=== PATIENT | male | born 1975 | race Caucasian/White ===

== ENCOUNTER 2017-05-18 17:53 | Inpatient (IN) | payer BC, OTHER ==
[~2017-05-18] VITALS: Ht 205.7 cm; Wt 98.5 kg
[2017-05-18] MEDS ORDERED: SODIUM CHLORIDE 0.9% FLUSH 10 ML FLUSH IV FLUSH PRN (19:00)
[2017-05-18] MEDS ORDERED: NALOXONE HCL 0.4 MG/ML AMP IV PUSH PRN (19:00)
[2017-05-18] MEDS ORDERED: SODIUM CHLORIDE 0.9% FLUSH 10 ML FLUSH IV FLUSH SCH (21:00)
[2017-05-18 23:40] VITALS: BP 121/58; PULSE 65; RESP 17; TEMP 97.7; O2SAT 98
[2017-05-19] MEDS ORDERED: MAGNESIUM HYDROXIDE SUSP 30 ML CUP PO PRN (00:15)
[2017-05-19] MEDS ORDERED: NALOXONE HCL 0.4 MG/ML AMP IV PUSH PRN (00:15)
[2017-05-19] MEDS ORDERED: SENNOSIDES 8.6 MG TAB PO PRN (00:15)
[2017-05-19] MEDS ORDERED: LACTULOSE SYRUP 20 GM/30 ML CUP PO PRN (00:15)
[2017-05-19] MEDS ORDERED: SODIUM CHLORIDE 0.9% FLUSH 10 ML FLUSH IV FLUSH PRN (00:15)
[2017-05-19] MEDS ORDERED: ONDANSETRON HCL 4 MG/2 ML VIAL IVP PRN (00:15)
[2017-05-19] MEDS ORDERED: ACETAMINOPHEN 325 MG TAB PO PRN (00:15)
[2017-05-19] MEDS ORDERED: BISACODYL 10 MG SUPP RECTAL PRN (00:15)
[2017-05-19] MEDS ORDERED: LORazepam 2 MG/ML VIAL IV PUSH ONE (00:30)
--- NOTE | 2017-05-19 01:17 | RADRPT ---
EXAM DATE/TIME: 05/19/2017 00:51 [facility] COMPARISON: No previous studies available for comparison. INDICATIONS : Altered mental status; trauma, fall one week ago. RADIATION DOSE: 52.19 CTDIvol (mGy) MEDICAL HISTORY : substance abuse. SURGICAL HISTORY : None. ENCOUNTER: Initial ACUITY: 1 day PAIN SCALE: Non-responsive LOCATION: cranial TECHNIQUE: Multiple contiguous axial images were obtained of the head. Using automated exposure control and adj ustment of the mA and/or kV according to patient size, radiation dose was kept as low as reasonably a chievable to obtain optimal diagnostic quality images. DICOM format image data is available electro nically for review and comparison. FINDINGS: CEREBRUM: The ventricles are normal for age. No evidence of midline shift, mass lesion, hemorrhage or acute in farction. No extra-axial fluid collections are seen. POSTERIOR FOSSA: The cerebellum and brainstem are intact. The 4th ventricle is midline. The cerebellopontine angle i s unremarkable. EXTRACRANIAL: Fracture of the right lateral orbit. Right maxillary sinus disease. SKULL: The calvaria is intact. No evidence of skull fracture. There are fractures of the right maxillary si nus and right zygomatic arch. CONCLUSION: 1. No acute intracranial disease. 2. Fractures of the right zygomatic arch, right maxillary sinus and right lateral orbit. Brett Epps MD on May 19, 2017 at 1:12 Board Certified Radiologist. This report was verified electronically.
--- NOTE | 2017-05-19 02:34 | HHI.HP ---
HPI Service [facility] Hospitalists Primary Care Physician Unknown Admission Diagnosis Diagnoses: Chief Complaint: AMS, acute psycosis Travel History International Travel<30 Days: No Contact w/Intl Traveler <30 Da: No History of Present Illness 41 year old male with a possible history seizures was a transfer from [facility] per concerns from local family members. Patient was originally admitted to [facility] after having a possible syncopal episode and being found face down on the ground. When patient became more alert he was very combative. Records reviewed and it shows patient has multiple nonsurgical facial fractures. During his course at [facility] he became combative and hallucinating and was transferred to [facility] psychiatric department. Patient was placed on Haldol, Geodon and Zyprexa with no improvement. It was agreed that patient be transferred to [facility] for a second opinion per family request. Upon arrival patient was very combative and Ativan was needed in order to perform a CT scan. Scans from prior hospitals were reviewed, MRI was stated completed for possible demyelination process but unfortunately there is no MRI report in the records. Patient seen and examined, patient is currently in 4 point restraints and sedated, unable to answer questions at this time. According to the RN when patient arrived he was hallucinating and not making sense when he talked, and grabbing for objects that were not there. A close family member was at the bedside and was able to give information. She say she spoke to the patient on the phone and was able to state her name but did not know much more. She does not know his medical history besides hypertension but states he sees Dr. Porras in [facility] and provided the number. She states he is a smoker but does not drink or do drugs. He works for his Dad's company, [employer]. Review of Systems Except as stated in HPI: all other systems reviewed are Neg Past Family Social History Past Medical History Per medical records: Possible Seizure disorder Past Surgical History Per medical records no surgical history Known Allergies: Coded Allergies: No Known Allergies (Verified Allergy, Severe, 08/07/04) Active Ordered Medications Current Medications Medications (Trade) Dose Ordered Sig/Odalis Route Start Time Stop Time Status Last Admin (NS Flush) 2 ml UNSCH PRN IV FLUSH 05/19/17 00:15 (NS Flush) 2 ml BID IV FLUSH 05/19/17 09:00 (Tylenol) 650 mg Q4H PRN PO 05/19/17 00:15 (Zofran Inj) 4 mg Q6H PRN IVP 05/19/17 00:15 (Narcan Inj) 0.4 mg UNSCH PRN IV PUSH 05/19/17 00:15 (Shagufta-Colace) 1 tab BID PO 05/19/17 09:00 (Milk Of Magnesia Liq) 30 ml Q12H PRN PO 05/19/17 00:15 (Senokot) 17.2 mg Q12H PRN PO 05/19/17 00:15 (Dulcolax Supp) 10 mg DAILY PRN RECTAL 05/19/17 00:15 (Lactulose Liq) 30 ml DAILY PRN PO 05/19/17 00:15 (Keppra) 500 mg Q12HR PO 05/19/17 09:00 Family History Per medical history patient has a family history of heart disease Social History Per medical history patient is a former smoker Physical Exam Vital Signs Vital Signs Date Time Temp Pulse Resp B/P (MAP) Pulse Ox O2 Delivery O2 Flow Rate FiO2 05/18/17 23:40 97.7 65 17 121/58 (79) 98 Physical Exam GENERAL: This is a well-nourished, well-developed patient, who is in acute psychosis. SKIN: Multiple abrasions on face and extremities, ecchymoses around right eye HEAD: Atraumatic. Normocephalic. EYES: Pupils equal round and reactive. Right eye reddened sclera ENT: Nose without bleeding, purulent drainage or septal hematoma. Airway patent. NECK: Trachea midline. No JVD or lymphadenopathy. CARDIOVASCULAR: Regular rate and rhythm without murmurs, gallops, or rubs. RESPIRATORY: Clear to auscultation. Breath sounds equal bilaterally. No wheezes , rales, or rhonchi. GASTROINTESTINAL: Abdomen soft, non-tender, nondistended. MUSCULOSKELETAL: Extremities without clubbing, cyanosis, or edema. NEUROLOGICAL: Lethargic, moves to painful stimuli. Does not follow commands, restrained Caprini VTE Risk Assessment Caprini VTE Risk Assessment: No/Low Risk (score <= 1) Caprini Risk Assessment Model Point Value = 1 Point Value = 2 Point Value = 3 Point Value = 5 Age 41-60 Minor surgery BMI > 25 kg/m2 Swollen legs Varicose veins or History of unexplained or recurrent spontaneous Oral contraceptives or hormone replacement Sepsis (< 1 month) Serious lung disease, including pneumonia (< 1 month) Abnormal pulmonary function Acute myocardial infarction Congestive heart failure (< 1 month) History of inflammatory bowel disease Medical patient at bed rest Age 61-74 Arthroscopic surgery Major open surgery (> 45 min) Laparoscopic surgery (> 45 min) Malignancy Confined to bed (> 72 hours) Immobilizing plaster cast Central venous access Age >= 75 History of VTE Family history of VTE Factor V Leiden Prothrombin [id number] Lupus anticoagulant Anticardiolipin antibodies Elevated serum homocysteine Heparin-induced thrombocytopenia Other congenital or acquired thrombophilia Stroke (< 1 month) Elective arthroplasty Hip, pelvis, or leg fracture Acute spinal cord injury (< 1 month) Prophylaxis Regimen Total Risk Factor Score Risk Level Prophylaxis Regimen 0-1 Low Early ambulation 2 Moderate Order ONE of the following: *Sequential Compression Device (SCD) *Heparin 5000 units SQ BID 3-4 Higher Order ONE of the following medications: *Heparin 5000 units SQ TID *Enoxaparin/Lovenox 40 mg SQ daily (WT < 150 kg, CrCl > 30 mL/min) *Enoxaparin/Lovenox 30 mg SQ daily (WT < 150 kg, CrCl > 10-29 mL/min) *Enoxaparin/Lovenox 30 mg SQ BID (WT < 150 kg, CrCl > 30 mL/min) AND/OR *Sequential Compression Device (SCD) 5 or more Highest Order ONE of the following medications: *Heparin 5000 units SQ TID (Preferred with Epidurals) *Enoxaparin/Lovenox 40 mg SQ daily (WT < 150 kg, CrCl > 30 mL/min) *Enoxaparin/Lovenox 30 mg SQ daily (WT < 150 kg, CrCl > 10-29 mL/min) *Enoxaparin/Lovenox 30 mg SQ BID (WT < 150 kg, CrCl > 30 mL/min) AND *Sequential Compression Device (SCD) Assessment and Plan Problem List: (1) Acute psychosis ICD Code: F23 - Brief psychotic disorder Status: Acute (2) Facial fracture due to fall ICD Code: S02.92XA - Unspecified fracture of facial bones, initial encounter for closed fracture; W19.XXXA - Unspecified fall, initial encounter Status: Acute (3) Acute renal failure ICD Code: N17.9 - Acute kidney failure, unspecified Status: Acute Assessment and Plan 41 year old male with a possible history seizures was a transfer from [facility] per concerns from local family members. Patient was originally admitted to [facility] after having a possible syncopal episode and being found face down on the ground. Acute psychosis, unknown etiology, possible toxic Head CT reviewed and unremarkable -MRI brain ordered -Consult neurology for recommendations -Consult psychiatry for recommendations -EEG ordered -Hold psych medications until evaluated by psychiatry -Ammonia level ordered -Requesting recorders from PCP regarding home medications and history Acute renal failure, creatine 3.17 -NS bolus given, Cont IVF for hydration -Renal ultrasound ordered -Consult nephrology for assistance -Avoid nephrotoxins Leukocytosis, wbc 16.7, possible reactive, no source -UA Ordered -Trend CBC Facial fractures from fall, chronic -Will need follow up with Dr. Guerrero once discharged DVT prophylaxis: SCDs Discussed Condition With Patient's family friend and RN Physician Certification 2 Midnight Certification Type: Admission for Inpatient Services Order for Inpatient Services The services are ordered in accordance with Medicare regulations or non- Medicare payer requirements, as applicable. In the case of services not specified as inpatient-only, they are appropriately provided as inpatient services in accordance with the 2-midnight benchmark. Estimated LOS (days): 2 days is the estimated time the patient will need to remain in the hospital, assuming treatment plan goals are met and no additional complications. Post-Hospital Plan: Not yet determined Problem Qualifiers (1) Facial fracture due to fall: Qualified Codes: S02.92XA - Unspecified fracture of facial bones, initial encounter for closed fracture; W19.XXXA - Unspecified fall, initial encounter (2) Acute renal failure: Qualified Codes: N17.9 - Acute kidney failure, unspecified Ninoska Hyatt May 19, 2017 02:34
[2017-05-19 04:15] LABS: AUTOMATED NEUTROPHIL # 13.5 TH/MM3 (1.8-7.7); BASOPHIL # 0.1 TH/MM3 (0-0.2); BASOPHIL % 0.4 % (0.0-2.0); EOSINOPHIL # 0.1 TH/MM3 (0-0.4); EOSINOPHIL % 0.4 % (0.0-4.0); HEMATOCRIT 43.4 % (39.0-51.0); HEMOGLOBIN 14.9 GM/DL (13.0-17.0); LYMPH % 9.1 % (9.0-44.0); LYMPHOCYTE # 1.5 TH/MM3 (1.0-4.8); MEAN CELL VOLUME 81.8 FL (80.0-100.0); MEAN CORPUSCULAR HEMOGLOBIN 28.1 PG (27.0-34.0); MEAN CORPUSCULAR HGB CONC 34.4 % (32.0-36.0); MEAN PLATELET VOLUME 8.5 FL (7.0-11.0); MONO % 9.4 % (0.0-8.0); MONOCYTE # 1.6 TH/MM3 (0-0.9); NEUT % 80.7 % (16.0-70.0); PLATELET COUNT 287 TH/MM3 (150-450); RED BLOOD COUNT 5.31 MIL/MM3 (4.50-5.90); RED CELL DISTRIBUTION WIDTH 13.7 % (11.6-17.2); WHITE BLOOD COUNT 16.7 TH/MM3 (4.0-11.0)
[2017-05-19 04:48] LABS: ALT (GPT) 67 U/L (12-78); AST (GOT) 190 U/L (15-37); BICARBONATE 26.8 MEQ/L (21.0-32.0); BLOOD UREA NITROGEN 74 MG/DL (7-18); CALCIUM 9.5 MG/DL (8.5-10.1); CHLORIDE 103 MEQ/L (98-107); CREATININE 3.17 MG/DL (0.60-1.30); GLOMERULAR FILTRATION RATE 22 ML/MIN (>89); GLUCOSE,RANDOM 121 MG/DL (74-106); SODIUM (NA) 142 MEQ/L (136-145)
[2017-05-19 04:50] LABS: ALKALINE PHOSPHATASE 69 U/L (45-117); TOTAL BILIRUBIN ADULT 0.7 MG/DL (0.2-1.0); TOTAL PROTEIN 7.9 GM/DL (6.4-8.2)
[2017-05-19] MEDS ORDERED: SODIUM CHLOR 0.9% 1000 ML INJ 1,000 ML IV SCH (05:30)
[2017-05-19] MEDS ORDERED: SODIUM CHLORID 0.9% 500 ML INJ 500 ML IV ONE (05:30)
[2017-05-19 06:02] VITALS: BP 118/55; PULSE 79; RESP 17; TEMP 98.8; O2SAT 96
[2017-05-19] MEDS ORDERED: DIVA500T PO (07:55)
[2017-05-19] MEDS ORDERED: NICO21DI6 T-DERMAL (07:55)
[2017-05-19] MEDS ORDERED: LEVE500T8 PO (07:55)
[2017-05-19] MEDS ORDERED: BACI500O9 TOPICAL (07:55)
[2017-05-19] MEDS ORDERED: LISI-515 PO (07:55)
[2017-05-19] MEDS ORDERED: CEPH500C PO (07:55)
[2017-05-19 08:09] VITALS: BP 137/58; PULSE 71; RESP 17; TEMP 99.1; O2SAT 97
[2017-05-19] MEDS: SODIUM CHLORIDE 0.9% FLUSH 10 ML FLUSH IV FLUSH SCH ×2 (09:00→21:00)
[2017-05-19] MEDS ORDERED: levETIRAcetam 500 MG TAB PO SCH (09:00)
[2017-05-19] MEDS: DOCUSATE SODIUM 50 MG/SENNA 8.6 MG TAB PO SCH ×2 (09:00→21:00)
--- NOTE | 2017-05-19 09:53 | RADRPT ---
EXAM DATE/TIME: 05/19/2017 08:00 [facility] COMPARISON: No previous studies available for comparison. INDICATIONS : Increased BUN/creatinine. MEDICAL HISTORY : Substance use. Tobacco use. SURGICAL HISTORY : None. ENCOUNTER: Initial ACUITY: 1 day PAIN SCORE: Nonresponsive. LOCATION: Bilateral flank MEASUREMENTS: RIGHT KIDNEY: 11.9 x 6.2 x 5.7 cm LEFT KIDNEY: 11.4 x 5.9 x 5.1 cm COMPLETE APPROPRIATE ITEMS PRE PROCEDURE: ID x 2: Complete NameDate of BirthPatient Name Band Education: Nurse/Technologist explained proce dure to patient/family. Patient/family demonstrates understanding of procedure. FINDINGS: RIGHT KIDNEY: Renal cortex is normal in thickness with slight increased echotexture No hydronephrosis, stone, or ma ss. LEFT KIDNEY: Renal cortex is normal in thickness with slight increased echotexture. No hydronephrosis, stone, or mass. BLADDER: Within normal limits given the degree of distension. Estimated volume is 437 cc CONCLUSION: 1. Both kidneys are normal in size with slight increased echotexture characteristic of acute medical renal disease. 2. Otherwise negative. No hydronephrosis, nephrolithiasis or mass lesion. Brian Poe MD on May 19, 2017 at 9:47 Board Certified Radiologist. This report was verified electronically.
[2017-05-19 12:08] VITALS: BP 137/70; PULSE 95; RESP 18; TEMP 98.9; O2SAT 96
--- NOTE | 2017-05-19 13:53 | PD.PSY.CON ---
Provisional Diagnosis Admission Date May 18, 2017 at 23:42 [place] I. Delirium versus psychosis, history of benzodiazepine abuse [place] II. Deferred [place] III. Seizures History of Present Illness Service Psychiatry Consult Requested By Medicine Reason for Consult Psychosis Primary Care Physician Unknown HPI The patient is a 41 year old man, domiciled his father, single, employed, with psychiatric history of anxiety, benzodiazepine abuse, as per father, no previous psychiatric hospitalizations, no previous suicidal attempts , medical history of seizures, was a transfer from [facility] per concerns from local family members. Patient was originally admitted to [facility] after having a possible syncopal episode and being found face down on the ground. When patient became more alert he was very combative. Records reviewed and it shows patient has multiple nonsurgical facial fractures. During his course at [facility] he became combative and hallucinating and was transferred to [facility] psychiatric department. Patient was placed on Haldol, Geodon and Zyprexa with no improvement. It was agreed that patient be transferred to [place] for a second opinion per family request. Upon arrival patient was very combative and Ativan was needed in order to perform a CT scan. Scans from prior hospitals were reviewed, MRI was stated completed for possible demyelination process but unfortunately there is no MRI report in the records. The patient was consulted to psychiatry due to psychosis and aggressive behavior. The patient has been restrained in 4 points, medicated multiple times for aggressiveness. At the moment of my evaluation the patient is completely sedated, unable to provide any significant information for the psychiatric assessment at the moment. However, I had a long conversation with his father by phone for collateral information. He is name is Almas [phone]. His father clarified that the patient has psychiatric history of anxiety, he has been on Xanax in the past, the father suspect that he could be abusing Xanax in the past, but he is not sure if the patient has been using Xanax recently. However, he states that it could be a possibility. The patient does not have history of psychiatric hospitalizations, no history of aggressive behavior, does not have problems with drugs or alcohol. 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 He says that this behavior is not out of his character, and this all started after the patient felt in the floor after having seizures while working.. Review of Systems ROS Limitations: Unresponsive Past Family Social History Coded Allergies: No Known Allergies (Verified Allergy, Severe, 08/07/04) Reported Medications Lisinopril (Lisinopril) 20 Mg Tab, 20 MG PO DAILY, #30 TAB 0 Refills 05/19/17 Levetiracetam (Levetiracetam) 500 Mg Tab, 500 MG PO BID for Control Seizures, # 60 TAB 0 Refills 05/19/17 Nicotine Patch (Nicoderm CQ Patch) 21 Mg/24 Hr Patch, 21 MG T-DERMAL DAILY for Smoking Cessation, #30 PATCH 0 Refills 05/19/[address] (Divalproex DR) 500 Mg Tabdr, 500 MG PO BID for Control Seizures, #60 TAB 0 Refills 05/19/17 Cephalexin (Cephalexin) 500 Mg Cap, 500 MG PO Q12H for Infection, CAP 0 Refills 05/19/17 Bacitracin Topical (Bacitracin Topical) 500 Unit/Gm Oint, 1 APPLIC TOPICAL BID for Infection, #30 GM 0 Refills 05/19/17 Current Medications Medications (Trade) Dose Ordered Sig/Odalis Route Start Time Stop Time Status Last Admin (NS Flush) 2 ml UNSCH PRN IV FLUSH 05/19/17 00:15 (NS Flush) 2 ml BID IV FLUSH 05/19/17 09:00 (Tylenol) 650 mg Q4H PRN PO 05/19/17 00:15 (Zofran Inj) 4 mg Q6H PRN IVP 05/19/17 00:15 (Narcan Inj) 0.4 mg UNSCH PRN IV PUSH 05/19/17 00:15 (Shagufta-Colace) 1 tab BID PO 05/19/17 09:00 (Milk Of Magnesia Liq) 30 ml Q12H PRN PO 05/19/17 00:15 (Senokot) 17.2 mg Q12H PRN PO 05/19/17 00:15 (Dulcolax Supp) 10 mg DAILY PRN RECTAL 05/19/17 00:15 (Lactulose Liq) 30 ml DAILY PRN PO 05/19/17 00:15 (Keppra) 500 mg Q12HR PO 05/19/17 09:00 Sodium Chloride 1,000 ml @ 100 mls/hr Q10H IV 05/19/17 05:30 05/19/17 05:59 Family Psych History No family psychiatric history Social History Patient was born and raised in [facility] [facility], he lives in [place] with his father , he is single, , 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 2) Good family support Physical Exam Vital Signs Vital Signs Date Time Temp Pulse Resp B/P (MAP) Pulse Ox O2 Delivery O2 Flow Rate FiO2 05/19/17 12:08 98.9 95 18 137/70 (92) 96 I/O 05/19/17 05/19/17 05/20/17 08:00 16:00 00:00 Intake Total 0 ml Output Total 0 ml Balance 0 ml Lab Results Test 05/19/17 04:03 White Blood Count 16.7 TH/MM3 Red Blood Count 5.31 MIL/MM3 Hemoglobin 14.9 GM/DL Hematocrit 43.4 % Mean Corpuscular Volume 81.8 FL Mean Corpuscular Hemoglobin 28.1 PG Mean Corpuscular Hemoglobin Concent 34.4 % Red Cell Distribution Width 13.7 % Platelet Count 287 TH/MM3 Mean Platelet Volume 8.5 FL Neutrophils (%) (Auto) 80.7 % Lymphocytes (%) (Auto) 9.1 % Monocytes (%) (Auto) 9.4 % Eosinophils (%) (Auto) 0.4 % Basophils (%) (Auto) 0.4 % Neutrophils # (Auto) 13.5 TH/MM3 Lymphocytes # (Auto) 1.5 TH/MM3 Monocytes # (Auto) 1.6 TH/MM3 Eosinophils # (Auto) 0.1 TH/MM3 Basophils # (Auto) 0.1 TH/MM3 CBC Comment AUTO DIFF Differential Comment AUTO DIFF CONFIRMED Blood Urea Nitrogen 74 MG/DL Creatinine 3.17 MG/DL Random Glucose 121 MG/DL Total Protein 7.9 GM/DL Albumin 4.0 GM/DL Calcium Level 9.5 MG/DL Alkaline Phosphatase 69 U/L Aspartate Amino Transf (AST/SGOT) 190 U/L Alanine Aminotransferase (ALT/SGPT) 67 U/L Total Bilirubin 0.7 MG/DL Sodium Level 142 MEQ/L Potassium Level 4.0 MEQ/L Chloride Level 103 MEQ/L Carbon Dioxide Level 26.8 MEQ/L Anion Gap 12 MEQ/L Estimat Glomerular Filtration Rate 22 ML/MIN Ammonia 33 MCMOL/L Mental Status Examination Mental Status Exam Remarks Limited due to the level of sedation Assessment & Plan Problem List: (1) Acute psychosis ICD Codes: F23 - Brief psychotic disorder Status: Acute Assessment & Plan: At the moment of the psychiatric evaluation the patient is too sedated to cooperate with assessment. The patient has been reportedly agitated, psychotic, at times aggressive. Patient does not have any prominent psychiatric history other than anxiety and potential benzodiazepine abuse. Given the beginning, progression of the symptomatology, recent presentation does not seem to be secondary to a major psychiatric illness decompensation. Post ictal psychosis versus benzodiazepine withdrawal persistent psychosis should be carefully explored. Would suggest to discuss with neurology the benefit of switching Keppra for Depakote, his Keppra can exacerbate and use aggressive behavior and agitation while Depakote can treat these. Haldol 5 mg IM/IV every 8 hours with Ativan 2 mg/IM IV every 8 hours as needed severe agitation and aggressive behavior. Low dose of antipsychotic, Risperdal 0.5 mg twice daily, or Seroquel 25 mg twice daily could be really helpful for psychosis. Will order EKG for QTc interval baseline, if higher than 460 discontinue antipsychotics. If current presentation persist beyond medical clearance, psychiatric hospitalization in the [facility] could be beneficial. I will follow-up Assessment & Plan Estimated LOS: Ashwin Tai MD May 19, 2017 13:53
[2017-05-19] MEDS ORDERED: LORazepam 2 MG/ML VIAL IV PUSH PRN (14:45)
--- NOTE | 2017-05-19 15:05 | HHI.PR ---
Subjective Remarks The patient is sedated after receiving 2 mg of Ativan overnight. He cannot contribute much to the history. I talked to his girlfriend and father at bedside at length. It was confirmed the patient has a reported history of seizure disorder but has not been taking any medications. His father reports he was having seizures about once a month. On further questioning, it appears that he has been using Xanax for anxiety. There are questions about whether or not he has been abusing it. Objective Vitals Vital Signs Date Time Temp Pulse Resp B/P (MAP) Pulse Ox O2 Delivery O2 Flow Rate FiO2 05/19/17 12:08 98.9 95 18 137/70 (92) 96 05/19/17 08:09 99.1 71 17 137/58 (84) 97 05/19/17 06:02 98.8 79 17 118/55 (76) 96 05/18/17 23:40 97.7 65 17 121/58 (79) 98 I/O 05/18/17 05/18/17 05/18/17 05/19/17 05/19/17 05/19/17 07:00 15:00 23:00 07:00 15:00 23:00 Intake Total 0 ml Output Total 0 ml Balance 0 ml Intake Oral 0 ml Output Urine Total 0 ml # Bowel Movements 0 Result Diagram: 05/19/17 0403 05/19/17402 Objective Remarks GENERAL: Sedated, withdraws to painful stimuli. CARDIOVASCULAR: Normal rate and regular rhythm without murmurs, gallops, or rubs. RESPIRATORY: Breath sounds equal and clear to auscultation bilaterally. GASTROINTESTINAL: Abdomen soft, non-tender, non-distended. Normal active bowel sounds MUSCULOSKELETAL: Small bruise over the right shoulder. Bilateral lower extremities with some excoriations from restraints. Right lower extremity has evidence of early cellulitis. NEURO: Sedated. A/P Problem List: (1) Acute psychosis ICD Code: F23 - Brief psychotic disorder Status: Acute (2) Facial fracture due to fall ICD Code: S02.92XA - Unspecified fracture of facial bones, initial encounter for closed fracture; W19.XXXA - Unspecified fall, initial encounter Status: Acute (3) Acute renal failure ICD Code: N17.9 - Acute kidney failure, unspecified Status: Acute Assessment and Plan 41 year old male with a probable history of untreated/undiagnosed seizure disorder. The patient was initially admitted at [facility] in [place]. He was then transferred to hospital in [place], then to [facility] before being admitted at the psychiatric unit in [place]. The patient was transferred here for further evaluation and treatment per his family's request. Probable untreated/undiagnosed seizure disorder: Reportedly he has been having seizures once a month for the past few years per his father. However he was not on any antiepileptics and does not follow with a neurologist. He has been using Xanax to treat anxiety. They are concerned about potential abuse based on discussion with the family. Given the course of event, it is possible that he had a seizure and subsequent psychotic symptoms are due to withdrawals from benzodiazepines. Family denies any history of alcohol abuse. - Neurology has been consulted. Appreciate assistance. Psychiatry consult noted. Will defer to neurology regarding antiepileptics. Patient was started on Keppra. - Brain MRI and EEG pending -Use Ativan as needed for agitation. Psychosis: See above. - Use Ativan as needed. I am more concerned that his symptoms may be due to benzodiazepine withdrawals. Appreciate input from psychiatry. If benzodiazepines not effective, will consider low-dose antipsychotic. Acute renal failure, likely prerenal azotemia from dehydration. Creatine 3.17 -NS bolus given, Cont IVF for hydration -Renal ultrasound ordered -Consult nephrology for assistance -Avoid nephrotoxins Hypertension: - Currently normotensive. Continue to monitor. Multiple facial fractures: - Consult OMFS. Early RLE Cellulitis: - Start Rocephin until he can take Oral. DVT prophylaxis: SCDs Problem Qualifiers (1) Facial fracture due to fall: Qualified Codes: S02.92XA - Unspecified fracture of facial bones, initial encounter for closed fracture; W19.XXXA - Unspecified fall, initial encounter (2) Acute renal failure: Qualified Codes: N17.9 - Acute kidney failure, unspecified Darnell Moon MD May 19, 2017 15:05
[2017-05-19] MEDS: cefTRIAXone INJ 1,000 MG in SODIUM CHLORIDE 0.9% INJ 100 ML IV SCH (15:40)
[2017-05-19 16:02] VITALS: BP 146/64; PULSE 63; RESP 18; TEMP 99.1; O2SAT 95
[2017-05-19] MEDS: D5-1/2 NS + KCL 10 MEQ INJ 1,000 ML IV SCH ×2 (16:14→23:40)
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
--- NOTE | 2017-05-19 17:13 | RADRPT ---
EXAM DATE/TIME: 05/19/2017 13:25 [place] COMPARISON: CT BRAIN W/O CONTRAST, May 19, 2017, 0:51. INDICATIONS : Altered mental status. MEDICAL HISTORY : Seizures. Hypertension. Substance abuse. SURGICAL HISTORY : Umbilical hernia repair. ENCOUNTER: Subsequent ACUITY: 2 day PAIN SCORE: 0/10 LOCATION: head. TECHNIQUE: Multiplanar, multisequence MRI of the brain was performed without contrast. FINDINGS: CEREBRUM: The ventricles are normal for age. No evidence of midline shift, mass lesion, hemorrhage or acute in farction. No extraaxial fluid collections are seen. The pituitary gland and suprasellar cistern are normal in configuration. WHITE MATTER: No significant signal abnormalities are seen in the white matter. POSTERIOR FOSSA: The cerebellum and brainstem are intact. The 4th ventricle is midline. The cerebellopontine angle is unremarkable. The cerebellar tonsils are normal in position. DIFFUSION IMAGING: No focal areas of restricted diffusion are seen. No evidence of acute infarction. EXTRACRANIAL: Trace fluid in the right maxillary sinus. CT exam demonstrated right sided facial fractures. CONCLUSION: 1. Unremarkable MRI examination of the brain. Specifically, no evidence for acute infarction, hemorrh age or mass. Luis Haro MD on May 19, 2017 at 17:07 Board Certified Radiologist. This report was verified electronically.
[2017-05-19 19:27] LABS: AMORPHOUS SEDIMENT, URINE RARE; BACTERIA, URINE OCC /hpf; BILIRUBIN, URINE NEG (NEG); BLOOD, URINE MOD (NEG); GLUCOSE,URINE NEG (NEG); HYALINE CAST, URINE 21 /lpf (RARE); KETONE, URINE NEG (NEG); MUCUS URINE FEW /lpf (OCC); NITRITE,URINE NEG (NEG); PH, URINE 5.5 (5.0-8.5); SQUAMOUS EPITHELIAL CELL URINE 2 /hpf (0-5); URIC ACID CRYSTALS, URINE MOD /hpf; URINE COLOR YELLOW (YELLW/STRAW); URINE LEUKOCYTE ESTERASE NEG (NEG)
[2017-05-19 20:00] VITALS: BP 155/67; PULSE 51; RESP 17; TEMP 98.4; O2SAT 96
[2017-05-19] MEDS: levETIRAcetam INJ 500 MG in SODIUM CHLORIDE 0.9% INJ 100 ML IV SCH (23:38)
[2017-05-20] VITALS: BP 156/71; PULSE 72; RESP 17; TEMP 98.1; O2SAT 95
[2017-05-20 04:30] VITALS: BP 169/68; PULSE 51; RESP 17; TEMP 98.4; O2SAT 97
[2017-05-20] MEDS: cefTRIAXone INJ 1,000 MG in SODIUM CHLORIDE 0.9% INJ 100 ML IV SCH (05:28)
--- NOTE | 2017-05-20 07:45 | MG ---
cc: Nain Elkins MD EEG RECORD NUMBER [id number] INTERPRETATION: Delta theta frequencies with frequent spindles occurring off and on suggestive of stage II sleep. Reduced driving with photic stimulation. A 6-7 Hz posterior rhythm buildup during arousal. Single lead EKG showing sinus rhythm. IMPRESSION: Mild encephalopathy, appearance of mostly stage II sleep. No epileptic activity appreciated. Clinical correlation. MD SHARON Cagle/ , 09:03 PM , 09:19 PM
[2017-05-20] MEDS: SODIUM CHLORIDE 0.9% FLUSH 10 ML FLUSH IV FLUSH SCH ×2 (07:59→20:07)
[2017-05-20 08:00] VITALS: BP_SYST 157; BP_SYST 160; BP_DIAS 68; BP_DIAS 97; PULSE 59; PULSE 75; RESP 19; TEMP 97.7; O2SAT 96; O2SAT 97
[2017-05-20 08:09] LABS: AUTOMATED NEUTROPHIL # 6.8 TH/MM3 (1.8-7.7); BASOPHIL % 0.3 % (0.0-2.0); EOSINOPHIL # 0.1 TH/MM3 (0-0.4); EOSINOPHIL % 1.3 % (0.0-4.0); HEMATOCRIT 41.9 % (39.0-51.0); HEMOGLOBIN 14.1 GM/DL (13.0-17.0); LYMPH % 17.2 % (9.0-44.0); LYMPHOCYTE # 1.6 TH/MM3 (1.0-4.8); MEAN CORPUSCULAR HEMOGLOBIN 28.3 PG (27.0-34.0); MEAN CORPUSCULAR HGB CONC 33.7 % (32.0-36.0); MEAN PLATELET VOLUME 8.6 FL (7.0-11.0); MONO % 8.5 % (0.0-8.0); MONOCYTE # 0.8 TH/MM3 (0-0.9); NEUT % 72.7 % (16.0-70.0); PLATELET COUNT 246 TH/MM3 (150-450); RED BLOOD COUNT 4.99 MIL/MM3 (4.50-5.90); RED CELL DISTRIBUTION WIDTH 13.5 % (11.6-17.2); WHITE BLOOD COUNT 9.3 TH/MM3 (4.0-11.0)
--- NOTE | 2017-05-20 08:39 | MB ---
cc: Chris Torres MD, PhD DATE: 05/19/2017 REASON FOR CONSULTATION: Mental status change, head trauma. HISTORY OF PRESENT ILLNESS: This is a 41-year-old man who apparently has a history of seizures in the past, but was being evaluated for them and not treated previously. 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 After this, he had profound cognitive changes with memory loss as well as agitation. The patient in the past, was placed on Haldol, Geodon, and Zyprexa with no improvement. PAST MEDICAL HISTORY: Otherwise unremarkable except for history of seizures. CURRENT MEDICATIONS: 1. Keppra 500 mg b.i.d. 2. Ceftriaxone. 3. Ativan as needed for seizure. 4. Zofran p.r.n. 5. Narcan p.r.n. NEUROLOGIC EXAMINATION: VITAL SIGNS: Blood pressure 146/64, pulse 63, respirations 18, temperature 98.9 degrees. HIGH CORITICAL FUNCTION: He is lethargic. Cranial nerves intact. Motor exam 5/5 strength. There is no focal deficit. Reflexes symmetric. IMAGING: A CT of the brain is normal. Fractures of the right zygomatic arch and right maxillary sinus and right lateral orbit are identified. Brain MRI normal intracranially. LABORATORY DATA: White count 16,700, hemoglobin ____, platelet count 287,000. Sodium is 142, potassium 4, chloride 103, CO2 26.8, BUN is 74, creatinine 3.17, AST 190, ALT 67, ammonia 33. IMPRESSION: 1. History of seizure disorder. I agree with continuing Keppra. Will follow up an electroencephalogram. 2. Behavioral changes following head trauma, probably postconcussive syndrome. Chris Torres MD, PhD SANDRO/rt , 07:15 PM , 08:16 PM
[2017-05-20 08:41] LABS: BICARBONATE 26.2 MEQ/L (21.0-32.0); CALCIUM 9.1 MG/DL (8.5-10.1); CREATININE 1.15 MG/DL (0.60-1.30); PHOSPHORUS 2.4 MG/DL (2.5-4.9)
[2017-05-20] MEDS: DOCUSATE SODIUM 50 MG/SENNA 8.6 MG TAB PO SCH ×2 (08:48→20:06)
[2017-05-20] MEDS: levETIRAcetam INJ 500 MG in SODIUM CHLORIDE 0.9% INJ 100 ML IV SCH (08:52)
[2017-05-20] MEDS: D5-1/2 NS + KCL 10 MEQ INJ 1,000 ML IV SCH (08:52)
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
[2017-05-20] MEDS ORDERED: LORazepam 1 MG TAB PO PRN (11:00)
[2017-05-20 12:00] VITALS: BP_SYST 160; BP_SYST 178; BP_DIAS 79; BP_DIAS 97; PULSE 57; PULSE 75; RESP 19; RESP 20; TEMP 97.7; O2SAT 96; O2SAT 97
[2017-05-20] MEDS: CEPHALEXIN MONOHYDRATE 500 MG CAP PO SCH ×2 (13:12→20:11)
[2017-05-20] MEDS ORDERED: ALPR1TAB3 PO (15:06)
[2017-05-20] MEDS ORDERED: MELO15TA20 PO (15:07)
--- NOTE | 2017-05-20 15:45 | PD.WCN.NOT ---
Wound Consult Description: Consult for Bilateral upper and LE wounds from restraints per Dr Moon Communicated with: Dr Moon Patient Recommendation: Remove dressings from bilateral wrists daily. Cleanse bilateral wrist wounds with NS and gauze. Apply single layer Xeroform to open wounds only. Cover with gauze and secure with rolled gauze and tape Bilateral lower extremity dry wounds BID: [place] with Povidone-Iodine and leave open to air. Additional Information: Patient seen on [facility] for bilateral upper and LE wounds. Patient has multiple dry wounds noted to lower extremities. Right lower posterior calf wound measures 4.3cm x 5cm x black eschar with bright red erythema noted to periwound extending 2cm out circumferentially with transparent intact tissue. Right lower anterior leg wound measures 1.5cm x 1.2cm x yellow dried exudate that is not friable. Periwound is noted with 0.5cm of erythema noted circumferentially. Left lower anterior leg wound measures 2.2cm x 2.2cm x dark red dried exudate that is not friable. Periwound is noted with 0.5cm of erythema noted circumferentially. Multiple scattered areas of dried exudate are noted posteriorly on the left lower extremity all measuring <1cm. All wounds on LE are left open to air and recommended to paint with Betadine BID and continue to leave open to air. Bilateral wrists were wrapped in adaptic and gauze that was removed to reveal multiple areas of partial and full thickness skin loss with jagged wound margins and scant yellow/clear exudate noted to removed dressing. Wound cleansed with NS and gauze. There is an area noted to left wrist with ~20% yellow adherent necrotic tissue (slough) that was unable to be removed with mechanical debridement. Recommend to cleanse bilateral wrist wounds daily with NS and gauze. Apply single layer Xeroform to open wounds only. Cover with gauze and secure with rolled gauze and tape. Necrotic tissue may need to be debrided either with sharps debridement or use of Collagenase (Santyl) if wound does not improve within 5-7 days. Lu Gray [facility] May 20, 2017 15:45
[2017-05-20 16:00] VITALS: BP_SYST 160; BP_SYST 166; BP_DIAS 77; BP_DIAS 97; PULSE 60; PULSE 75; RESP 19; TEMP 97.5; TEMP 97.7; O2SAT 97
[2017-05-20] MEDS: LISINOPRIL 20 MG TAB PO SCH (16:25)
--- NOTE | 2017-05-20 17:01 | HHI.NPPN ---
Subjective History of Present Illness 41-year-old with acute renal failure and dehydration with altered mental status Objective Data Data 05/20/17 05/21/17 18:59 06:59 Intake Total 1200 ml Balance 1200 ml IV Total 1200 ml Vital Signs Date Time Temp Pulse Resp B/P (MAP) Pulse Ox O2 Delivery O2 Flow Rate FiO2 05/20/17 08:00 97.7 59 19 157/68 (97) 96 05/20/17 08:00 97.7 75 19 160/97 (118) 97 05/20/17 04:30 98.4 51 17 169/68 (101) 97 05/20/17 00:00 98.1 72 17 156/71 (99) 95 05/19/17 20:00 98.4 51 17 155/67 (96) 96 -: 05/20/17 0635 05/20/17 0635 Microbiology 05/19/17 Urine Culture - Preliminary, Resulted Gram Negative Evna Physical Exam General Appearance: Well Developed, Well Nourished Neck Neck Exam: Neck Supple Pulmonary Resp Exam: Clear Bilaterally, Breath Sounds Equal Cardiology CV Exam: Regular, Normal Sinus Rhythm Gastrointestinal/Abdomen GI Exam: Soft, Non-Tender, Bowel Sounds Present Integumentary Skin Exam: Clear Assessment/Plan Problem List: (1) Acute renal failure ICD Codes: N17.9 - Acute kidney failure, unspecified Status: Acute Plan: Patient CPK moderate elevated Creatinine declined with IV fluids, creatinine 1.15 Patient will need hydration Nephrology to sign off (2) Facial fracture due to fall ICD Codes: S02.92XA - Unspecified fracture of facial bones, initial encounter for closed fracture; W19.XXXA - Unspecified fall, initial encounter Status: Acute Plan: Continue to monitor (3) Acute psychosis ICD Codes: F23 - Brief psychotic disorder Status: Acute Plan: Resolving Problem Qualifiers (1) Acute renal failure: Qualified Codes: N17.9 - Acute kidney failure, unspecified (2) Facial fracture due to fall: Qualified Codes: S02.92XA - Unspecified fracture of facial bones, initial encounter for closed fracture; W19.XXXA - Unspecified fall, initial encounter Alexandra Farias MD May 20, 2017 17:01
--- NOTE | 2017-05-20 18:45 | HHI.PR ---
Review/Management Diagnosis post concussive syndrome sz. Plan recommend continue keppra PT/OT/speech therapy. He would likely benefit from neuropsychology as outpatient for cognitive rehab ok from neuro standpoint for dc when ok with primary service Diagnosis/Plan: Subjective Subjective Comments No acute events reported No seizures still with moderate confusion and poor memory Active Medications Current Medications Medications (Trade) Dose Ordered Sig/Odalis Route Start Time Stop Time Status Last Admin (NS Flush) 2 ml UNSCH PRN IV FLUSH 05/19/17 00:15 (NS Flush) 2 ml BID IV FLUSH 05/19/17 09:00 05/20/17 07:59 (Tylenol) 650 mg Q4H PRN PO 05/19/17 00:15 (Zofran Inj) 4 mg Q6H PRN IVP 05/19/17 00:15 (Narcan Inj) 0.4 mg UNSCH PRN IV PUSH 05/19/17 00:15 (Shagufta-Colace) 1 tab BID PO 05/19/17 09:00 05/20/17 08:48 (Milk Of Magnesia Liq) 30 ml Q12H PRN PO 05/19/17 00:15 (Senokot) 17.2 mg Q12H PRN PO 05/19/17 00:15 (Dulcolax Supp) 10 mg DAILY PRN RECTAL 05/19/17 00:15 (Lactulose Liq) 30 ml DAILY PRN PO 05/19/17 00:15 (Keppra) 500 mg Q12HR PO 05/20/17 21:00 (Keflex) 500 mg Q8HR PO 05/20/17 14:00 05/20/17 13:12 (Ativan) 1 mg Q6H PRN PO 05/20/17 11:00 (Prinivil) 20 mg DAILY PO 05/20/17 15:45 05/20/17 16:25 Allergies Allergies Coded Allergies No Known Allergies (Verified Allergy, Severe, 08/07/04) Exam I&O / VS 05/20/17 05/20/17 05/21/17 15:00 23:00 07:00 Intake Total 2640 ml Output Total 1100 ml Balance 1540 ml Intake Oral 1440 ml IV Total 1200 ml Output Urine Total 1100 ml Vital Signs Date Time Temp Pulse Resp B/P (MAP) Pulse Ox O2 Delivery O2 Flow Rate FiO2 05/20/17 16:00 97.5 60 19 166/77 (106) 97 05/20/17 12:00 97.7 75 19 160/97 (118) 97 05/20/17 08:00 97.7 59 19 157/68 (97) 96 05/20/17 04:30 98.4 51 17 169/68 (101) 97 05/20/17 00:00 98.1 72 17 156/71 (99) 95 05/19/17 20:00 98.4 51 17 155/67 (96) 96 Exam Comments alert, oriented times three, speech normal , follow commands CN intact MOTOR 5/5 BUE Objective Radiology Results MRI brain--normal intracranially Micro and Labs Laboratory Tests Test 05/19/17 19:00 05/19/17 19:44 05/20/17 06:35 05/20/17 11:40 Urine Color YELLOW Urine Turbidity CLOUDY Urine pH 5.5 Urine Specific [place] 1.021 Urine Protein 30 Urine Glucose (UA) NEG Urine Ketones NEG Urine Occult Blood MOD Urine Nitrite NEG Urine Bilirubin NEG Urine Urobilinogen LESS THAN 2.0 Urine Leukocyte Esterase NEG Urine RBC 2 Urine WBC 12 Urine Squamous Epithelial Cells 2 Urine Uric Acid Crystals MOD Urine Amorphous Sediment RARE Urine Bacteria OCC Urine Hyaline Casts 21 Urine Mucus FEW Microscopic Urinalysis Comment CULTURE INDICATED Urine Random Creatinine 139.0 Urine Random Sodium 77 Total Creatine Kinase 2521 1346 Creatine Kinase MB 10.5 4.5 Creatine Kinase MB % 0.4 0.3 White Blood Count 9.3 Red Blood Count 4.99 Hemoglobin 14.1 Hematocrit 41.9 Mean Corpuscular Volume 84.0 Mean Corpuscular Hemoglobin 28.3 Mean Corpuscular Hemoglobin Concent 33.7 Red Cell Distribution Width 13.5 Platelet Count 246 Mean Platelet Volume 8.6 Neutrophils (%) (Auto) 72.7 Lymphocytes (%) (Auto) 17.2 Monocytes (%) (Auto) 8.5 Eosinophils (%) (Auto) 1.3 Basophils (%) (Auto) 0.3 Neutrophils # (Auto) 6.8 Lymphocytes # (Auto) 1.6 Monocytes # (Auto) 0.8 Eosinophils # (Auto) 0.1 Basophils # (Auto) 0.0 CBC Comment DIFF FINAL Differential Comment Blood Urea Nitrogen 42 Creatinine 1.15 Random Glucose 102 Calcium Level 9.1 Phosphorus Level 2.4 Sodium Level 141 Potassium Level 4.1 Chloride Level 107 Carbon Dioxide Level 26.2 Anion Gap 8 Estimat Glomerular Filtration Rate 70 Date/Time Source Procedure Growth Status 05/19/17 19:00 Urine Random Urine Urine Culture - Preliminary Gram Negative Eavn Resulted Diagnostic Tests EEG--mild slowing c/w mild encephalopathy Chris Torres MD PhD May 20, 2017 18:44
--- NOTE | 2017-05-20 19:44 | EKG ---
Date Performed: 05/19/2017 Time Performed: 16:38:28 PTAGE: 41 years EKG: SINUS BRADYCARDIA BORDERLINE ECG Since the PREVIOUS TRACING , no significant change noted PREVIOUS TRACIN08/06/2004 19.49 DOCTOR: Lazaro Perez Interpretating Date/Time 05/20/2017 19:42:34
[2017-05-20] MEDS ORDERED: diphenhydrAMINE HCL 25 MG CAP PO ONE (19:45)
[2017-05-20 20:00] VITALS: BP 137/63; PULSE 56; RESP 18; TEMP 98.5; O2SAT 97
[2017-05-20] MEDS: levETIRAcetam 500 MG TAB PO SCH (20:04)
[2017-05-21] VITALS: BP 162/77; PULSE 58; RESP 18; TEMP 98.1; O2SAT 97
[2017-05-21 04:00] VITALS: BP 161/87; PULSE 47; RESP 18; TEMP 97.4; O2SAT 97
[2017-05-21] MEDS: CEPHALEXIN MONOHYDRATE 500 MG CAP PO SCH ×3 (05:21→21:06)
[2017-05-21 08:08] VITALS: BP 173/81; PULSE 50; RESP 18; TEMP 98; O2SAT 100
[2017-05-21] MEDS: SODIUM CHLORIDE 0.9% FLUSH 10 ML FLUSH IV FLUSH SCH ×2 (09:26→21:07)
[2017-05-21] MEDS: DOCUSATE SODIUM 50 MG/SENNA 8.6 MG TAB PO SCH ×2 (09:26→21:06)
[2017-05-21] MEDS: levETIRAcetam 500 MG TAB PO SCH ×2 (09:26→21:06)
[2017-05-21] MEDS: LISINOPRIL 20 MG TAB PO SCH (09:26)
[2017-05-21] MEDS: amLODIPine BESYLATE 5 MG TAB PO SCH (13:12)
[2017-05-21 16:08] VITALS: BP 168/78; PULSE 54; RESP 18; TEMP 98.3; O2SAT 100
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
[2017-05-21] MEDS ORDERED: cloNIDine HCL 0.1 MG TAB PO PRN (16:15)
[2017-05-21 20:00] VITALS: BP_SYST 120; BP_SYST 148; BP_DIAS 56; BP_DIAS 68; PULSE 104; PULSE 53; RESP 20; TEMP 97.4; TEMP 98.4; O2SAT 97
[2017-05-21] MEDS ORDERED: TEMAZEPAM 15 MG CAP PO PRN (21:00)
[2017-05-21] MEDS: DIVALPROEX DR 500 MG TABEC PO SCH (21:06)
[2017-05-22] VITALS: BP 166/72; PULSE 56; RESP 20; TEMP 98.2; O2SAT 96
[2017-05-22 04:00] VITALS: BP 140/65; PULSE 47; RESP 20; TEMP 97.3; O2SAT 97
[2017-05-22] MEDS: CEPHALEXIN MONOHYDRATE 500 MG CAP PO SCH (07:15)
[2017-05-22 08:00] VITALS: BP 152/81; PULSE 55; RESP 20; TEMP 96.8; O2SAT 98
[2017-05-22] MEDS: SODIUM CHLORIDE 0.9% FLUSH 10 ML FLUSH IV FLUSH SCH (09:00)
[2017-05-22] MEDS: DIVALPROEX DR 500 MG TABEC PO SCH (09:01)
[2017-05-22] MEDS: amLODIPine BESYLATE 5 MG TAB PO SCH (09:02)
[2017-05-22] MEDS: DOCUSATE SODIUM 50 MG/SENNA 8.6 MG TAB PO SCH (09:02)
[2017-05-22] MEDS: levETIRAcetam 500 MG TAB PO SCH (09:02)
[2017-05-22] MEDS: LISINOPRIL 20 MG TAB PO SCH (09:03)
[2017-05-22] MEDS ORDERED: BACI500O9 TOPICAL (09:37)
[2017-05-22] MEDS ORDERED: AMLO5 PO (09:37)
[2017-05-22] MEDS ORDERED: CEPH500C PO (09:37)
[2017-05-22] MEDS ORDERED: LEVE500T8 PO (09:37)
[2017-05-22] MEDS ORDERED: LISI-515 PO (09:37)
[2017-05-22] MEDS ORDERED: DIVA500T PO (09:37)
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
--- NOTE | 2017-05-22 09:38 | HHI.DCPOC ---
Discharge Care Plan Diagnosis: (1) Seizure disorder (2) Post concussion syndrome (3) Rhabdomyolysis (4) Acute renal failure (5) Facial fracture due to fall (6) Acute psychosis Goals to Promote Your Health * To prevent worsening of your condition and complications * To maintain your health at the optimal level Directions to Meet Your Goals Take your medications as prescribed Follow your dietary instruction Follow activity as directed Keep your appointments as scheduled Take your immunizations and boosters as scheduled If your symptoms worsen call your PCP, if no PCP go to Urgent Care Center or Emergency Room Smoking is Dangerous to Your Health. Avoid second hand smoke Call the 24-hour hour crisis hotline for domestic abuse at Darnell Moon MD May 22, 2017 09:38
[2017-05-22] MEDS ORDERED: CLON1 PO (10:52)
== END 2017-05-22 11:05 | disposition home or self-care (01) | DRG 896 ==
LOC: N04B 23:42
PROVIDERS: ADMIT Family Medicine; ATTEND Family Medicine
DX: F13.239 Sedative, hypnotic or anxiolytic dependence with withdrawal, unspecified (principal); G93.40 Encephalopathy, unspecified; N17.9 Acute kidney failure, unspecified; M62.82 Rhabdomyolysis; F07.81 Postconcussional syndrome; L03.115 Cellulitis of right lower limb; F23 Brief psychotic disorder; S02.81XA Fracture of other specified skull and facial bones, right side, initial encounter for closed fracture; G40.909 Epilepsy, unspecified, not intractable, without status epilepticus; D72.829 Elevated white blood cell count, unspecified; S09.93XA Unspecified injury of face, initial encounter; I10 Essential (primary) hypertension; E86.0 Dehydration; R00.1 Bradycardia, unspecified; F41.9 Anxiety disorder, unspecified; R41.3 Other amnesia; S49.91XA Unspecified injury of right shoulder and upper arm, initial encounter; F17.210 Nicotine dependence, cigarettes, uncomplicated; W19.XXXA Unspecified fall, initial encounter; Y92.69 Other specified industrial and construction area as the place of occurrence of the external cause
CPT/HCPCS: 70450; 70551; 76775; 80048; 80053; 81001; 82140; 82550; 82552; 82570; 83874; 84100; 84300; 85025; 87077; 87086; 87186; 93005; 95819; J0696; J1953; J2060; J3480; J7030; J7040